=== PATIENT | female | born 1980 | race Caucasian/White ===

== ENCOUNTER 2021-01-20 17:19 | Observation (INO) ==
[2021-01-20] MEDS ORDERED: KETOROLAC 30 MG/1 ML VIAL IV STA (18:26)
[2021-01-20] MEDS ORDERED: ONDANSETRON 4 MG/2 ML VIAL IV STA ×2 (18:26→20:06)
[2021-01-20] MEDS ORDERED: SODIUM CHLORIDE 0.9% 1,000 ML IV STA (18:26)
[2021-01-20 18:49] LABS: Albumin 3.7 G/DL (3.4-5.0); Bilirubin,Total 0.5 MG/DL (0.2-1.0); Calcium 8.8 MG/DL (8.5-10.1); Potassium 3.9 MMOL/L (3.5-5.1); Total Protein 7.6 G/DL (6.4-8.3)
[2021-01-20 18:56] LABS: Basophils # 0.2 10*3/uL (0.0-0.2); Eosinophils # 0.3 10*3/uL (0.0-0.87); Eosinophils % 1.7 % (0.00-10.9); Hematocrit 49.6 VOL% (35.7-47.0); Hemoglobin 16.2 GM/DL (12.0-16.0); Immature Granulocytes Absolute 0.17 #; Lymphocytes % 12.4 % (21.3-54.2); Mean Corpuscular HGB Conc 32.7 GM/DL (32-36); Mean Platelet Volume 10.3 FL (9.6-12.0); Monocytes % 4.2 % (1.7-12.7); Neutrophils % 79.7 % (38.7-73.9); Platelet Count 666 T/CUMM (130-400); Red Blood Count 5.22 MC/CUMM (3.8-5.5); Red Cell Distribution Width 13.1 % (9.3-17.3); White Blood Count 16.3 T/CUMM (4-12)
[2021-01-20 19:02] LABS: Bacteria,Urine Moderate /HPF (Few); Bilirubin,Urine Negative (Negative); Blood, Urine Small mg/dL (Negative); Glucose,Urine (UA) Negative (Negative); Ketones,Urine 5 mg/dL (Negative); Mucus,Urine Many /LPF (Occasional); Nitrite,Urine Positive (Negative); Protein,Urine 100 MG/DL; RBC,Urine 19 /HPF (0-4); Squamous Epithelial Cell,Urine Occasional /HPF (0-10); Urine Appearance CLOUDY (Clear); Urine Color Amber (Yellow); Urine Specific Gravity 1.026 (1.001-1.035); Urine Urobilinogen < 2.0 EU/DL (0.2-1.0); WBC,Urine 1079 /HPF (0-6)
[2021-01-20 19:07] LABS: Barbiturates Screen,Urine Negative (Negative); Benzodiazepines Screen,Urine Negative (Negative); Cannabinoid Screen,Urine Negative (Negative); Opiate Screen,Urine Negative (Negative); Phencyclidine Screen,Urine Negative (Negative)
[2021-01-20] MEDS ORDERED: HYDROmorphone 2 MG/1 ML VIAL IV ONE (20:06)
[2021-01-20] MEDS ORDERED: PIPERACILLIN/TAZOBACTAM 3,375 MG in SODIUM CHLORIDE 0.9% 100 ML IV STA (20:07)
[2021-01-20] MEDS ORDERED: DOCUSATE SODIUM 100 MG CAPSULE PO PRN (20:46)
[2021-01-20] MEDS ORDERED: ZALEPLON 5 MG CAPSULE PO PRN (20:46)
[2021-01-20] MEDS ORDERED: DEXTROSE 50% 25 GM/50 ML VIAL IV PRN (20:46)
[2021-01-20] MEDS ORDERED: ONDANSETRON 4 MG/2 ML VIAL IV PRN (20:46)
[2021-01-20] MEDS ORDERED: PROMETHAZINE 25 MG/1 ML VIAL IM PRN (20:46)
[2021-01-20] MEDS ORDERED: hydrALAZINE 20 MG/1 ML VIAL IV PRN (20:46)
[2021-01-20] MEDS ORDERED: GLUCAGON 1 MG VIAL IM PRN (20:46)
[2021-01-20] MEDS ORDERED: ACETAMINOPHEN 325 MG TABLET PO PRN (20:46)
[2021-01-20] MEDS ORDERED: HYDROmorphone 2 MG/1 ML VIAL IV PRN (20:50)
[2021-01-20] MEDS ORDERED: ENOXAPARIN 40 MG/0.4 ML SYRINGE SUBCUT SCH (21:00)
[2021-01-20] MEDS ORDERED: NICOTINE 21 MG/24 HR PATCH TRANSDERM PRN (21:00)
[2021-01-20] MEDS: SODIUM CHLORIDE 0.9% 1,000 ML IV SCH (23:37)
[2021-01-21] MEDS: PIPERACILLIN/TAZOBACTAM 3,375 MG in SODIUM CHLORIDE 0.9% 100 ML IV SCH ×2 (04:30→14:10)
[2021-01-21 07:00] LABS: Basophils # 0.2 10*3/uL (0.0-0.2); Basophils % 1.1 % (0.0-0.8); Eosinophils # 0.4 10*3/uL (0.0-0.87); Eosinophils % 2.4 % (0.00-10.9); Hematocrit 44.9 VOL% (35.7-47.0); Hemoglobin 14.4 GM/DL (12.0-16.0); Immature Granulocytes % 0.8 %; Immature Granulocytes Absolute 0.13 #; Lymphocytes # 2.9 10*3/uL (1.4-4.0); Lymphocytes % 18.1 % (21.3-54.2); Mean Corpuscular HGB Conc 32.1 GM/DL (32-36); Mean Corpuscular Volume 97.6 FL (87-102); Mean Platelet Volume 10.2 FL (9.6-12.0); Monocytes % 5.8 % (1.7-12.7); Neutrophils % 71.8 % (38.7-73.9); Platelet Count 613 T/CUMM (130-400); Red Cell Distribution Width 13.1 % (9.3-17.3); White Blood Count 15.8 T/CUMM (4-12)
[2021-01-21 07:17] LABS: Calcium 7.9 MG/DL (8.5-10.1); Osmolality,Calculated 279.3 MOS/KG (273-304); Potassium 3.8 MMOL/L (3.5-5.1)
[2021-01-21] MEDS ORDERED: INFLUENZA VIRUS VACCINE 0.5 ML SYRINGE IM ONE (09:00)
[2021-01-21] MEDS: SODIUM CHLORIDE 0.9% 1,000 ML IV SCH (11:46)
[2021-01-21 11:48] VITALS: BP 109/60
[2021-01-22] MEDS ORDERED: PANTOPRAZOLE 40 MG TABLET PO SCH (06:30)
== END 2021-01-21 16:45 | disposition left against medical advice (07) ==
LOC: EDBD → EDUNIT# → N.ED 17:19 → N.EDINP 17:19 → N.5E 23:14
PROVIDERS: ADMIT Internal Medicine; ATTEND Internal Medicine